=== PATIENT | male | born 1995 | race Caucasian/White ===

== ENCOUNTER 2019-01-20 18:48 | Emergency (ER) | payer OTHER ==
[2019-01-20 19:14] VITALS: BP 115/75
[2019-01-20] MEDS ORDERED: Ibuprofen TAB* 600 MG PO ONE (19:27)
--- NOTE | 2019-01-20 19:48 | UC ---
Throat Pain/Nasal Kartik HPI - HPI Summary HPI Summary: Patient is a 23-year-old male presenting with sore throat and fever that began today while he was at work. Patient also complains of left ear pain and states that he became dizzy and fell at work. Denies drainage from left ear or decreased hearing. Patient did not hit his head or lose consciousness. Dizziness has resolved. Patient denies nasal congestion, cough, and right ear pain. Denies shortness of breath and wheezing. Denies nausea, vomiting, diarrhea, abdominal pain. Denies body aches. - History of Current Complaint Chief Complaint: UCRespiratory Stated Complaint: EAR ACHE AND SORE THROAT Hx Obtained From: Patient Onset/Duration: Sudden Onset Severity: Severe Pain Intensity: 7 Pain Scale Used: 0-10 Numeric - Allergies/Home Medications Allergies/Adverse Reactions: Allergies Allergy/AdvReac Type Severity Reaction Status Date / Time No Known Allergies Allergy Verified 01/20/19 19:14 Home Medications: Home Medications Ibuprofen TAB* [Motrin TAB* 400 MG] 400 mg PO ONCE 01/20/19 [History Confirmed 01/20/19] PMH/Surg Hx/FS Hx/Imm Hx Previously Healthy: Yes - Surgical History Surgical History: None - Family History Known Family History: Positive: Non-Contributory - Social History Alcohol Use: Occasionally Substance Use Type: Marijuana Smoking Status (MU): Never Smoked Tobacco Review of Systems All Other Systems Reviewed And Are Negative: Yes Constitutional: Positive: Fever. Negative: Chills ENT: Positive: Sore Throat, Ear Ache. Negative: Nasal Discharge, Sinus Congestion, Sinus Pain/Tenderness Respiratory: Positive: Negative Cardiovascular: Positive: Negative Gastrointestinal: Positive: Negative Musculoskeletal: Positive: Negative Neurological: Positive: Negative Physical Exam Triage Information Reviewed: Yes Appearance: Well-Appearing, No Pain Distress, Well-Nourished, Other: - diaphoretic Vital Signs: Initial Vital Signs Temp 102.0 F 01/20/19 19:11 Pulse 128 01/20/19 19:11 Resp 16 01/20/19 19:11 BP 115/75 01/20/19 19:11 Pulse Ox 98 01/20/19 19:11 Lab Results 01/20/19 Range/Units 19:57 Group A Strep Rapid Negative (Negative) Vital Signs Reviewed: Yes Eyes: Positive: Conjunctiva Clear ENT: Positive: Hearing grossly normal, Pharyngeal erythema, TMs normal, Tonsillar swelling, Tonsillar exudate, Uvula midline. Negative: Nasal congestion, Nasal drainage Neck: Positive: Supple, No Lymphadenopathy, Tenderness @ - L anterior cervical nodes Respiratory Exam: Normal Respiratory: Positive: Lungs clear, Normal breath sounds, No respiratory distress Cardiovascular Exam: Other - regular rhythm Cardiovascular: Positive: Tachycardia Neurological: Positive: Alert Psychological: Positive: Age Appropriate Behavior Throat Pain/Nasal Course/Dx - Course Course Of Treatment: Rapid strep test negative. I am treating with amoxicillin for bacterial pharyngitis based on vital signs and physical exam findings. Patient arrived with initial temperature of 102, given ibuprofen and temperature recheck decreased to 99. Throat culture was sent and I informed the patient that he'll be notified with any positive results that warranted change in treatment. Instructed to follow up with PCP if symptoms persist after antibiotic treatment. Instructed to go to the ED with worsening symptoms. Patient voiced understanding and agreed with the treatment plan. - Differential Dx/Diagnosis Provider Diagnosis: Exudative pharyngitis Discharge ED - Sign-Out/Discharge Documenting (check all that apply): Patient Departure All imaging exams completed and their final reports reviewed: No Studies - Discharge Plan Condition: Stable Disposition: HOME Referrals: [facility] [Outside] - If Needed [facility] [Outside] - If Needed Additional Instructions: As discussed, you tested positive for strep throat today. Take amoxicillin as prescribed for the treatment of strep throat. You may take ibuprofen and/or tylenol as directed for fever and pain relief. You may use over the counter throat sprays or lozenges for symptomatic relief. Get plenty of rest and fluids. Return or go to the emergency room if symptoms worsen or do not resolve in 10 days. - Billing Disposition and Condition Condition: STABLE Disposition: Home
== END 2019-01-20 20:20 | disposition home or self-care (01) ==
LOC: UCEAST 18:48
DX: J02.9 Acute pharyngitis, unspecified (principal); H92.02 Otalgia, left ear; R00.0 Tachycardia, unspecified
CPT/HCPCS: 87070; 87651; 99202; A9270-GY; G0463